=== PATIENT | female | born 1985 | race American Indian/Alaskan Native ===

== ENCOUNTER 2020-03-22 11:09 | Emergency (ER) | payer SELFPAY ==
[2020-03-22 11:16] VITALS: BP 140/93
[2020-03-22 12:43] LABS: HCG Qualitative,Urine Negative (Negative)
[2020-03-22 12:45] LABS: Bilirubin,Urine NEG (Negative); Blood,Urine SM (Negative); Color,Urine Yellow (Yellow); Mucus,Urine FEW /HPF; Protein,Urine <15 mg/dL mg/dL (Negative); Urobilinogen,Urine < 2.0 mg/dL (<2.0)
[2020-03-22] MEDS ORDERED: KETOROLAC 30 MG/1 ML INJ IM ONE (13:05)
--- NOTE | 2020-03-22 13:40 | XRay Report ---
ABDOMEN 2 VIEW(S) INDICATION / CLINICAL INFORMATION: abd pain. COMPARISON: None available. FINDINGS: TUBES / LINES: None. BOWEL GAS PATTERN: No significant abnormality. FREE AIR / EXTRALUMINAL GAS: None seen. ADDITIONAL FINDINGS: No significant additional findings. IMPRESSION: No significant abnormality. Signer Name: Albaro Gill Jr, MD Signed: 03/22/2020 1:36 PM Workstation Name: [id number]
--- NOTE | 2020-03-22 14:20 | XRay Report ---
RIGHT RIBS 4 VIEWS INDICATION / CLINICAL INFORMATION: right sided rib pain. COMPARISON: None available. FINDINGS: RIBS: No acute, displaced fracture or other acute abnormality. LUNGS: No acute findings. No pneumothorax. Signer Name: Ciro Jensen MD Signed: 03/22/2020 2:16 PM Workstation Name: [id number]
--- NOTE | 2020-03-22 14:21 | XRay Report ---
RIGHT HIP 2 VIEWS INDICATION / CLINICAL INFORMATION: right hip pain. COMPARISON: None available. FINDINGS: BONES/JOINT(S): No acute fracture or subluxation. No significant degenerative changes. SOFT TISSUES: No significant abnormality. ADDITIONAL FINDINGS: None. Signer Name: Ciro Jensen MD Signed: 03/22/2020 2:16 PM Workstation Name: [id number]
[2020-03-22 14:25] LABS: Basophils % (Auto) 0.5 % (0.0-1.8); Eosinophils # (Auto) 0.1 K/mm3 (0.0-0.4); Eosinophils % (Auto) 1.8 % (0.0-4.3); Hematocrit 36.2 % (30.3-42.9); Hemoglobin 11.9 gm/dl (10.1-14.3); Lymphocytes # (Auto) 1.7 K/mm3 (1.2-5.4); Lymphocytes % (Auto) 45.5 % (13.4-35.0); Mean Corpuscular HGB Conc 33 % (30-34); Mean Corpuscular Volume 90 fl (79-97); Monocytes # (Auto) 0.2 K/mm3 (0.0-0.8); Monocytes % (Auto) 6.2 % (0.0-7.3); Platelet Count 162 K/mm3 (140-440); Red Blood Count 4.04 M/mm3 (3.65-5.03); Red Cell Distribution Width 16.2 % (13.2-15.2)
[2020-03-22 14:56] LABS: Alanine Aminotransferase 16 units/L (7-56); Albumin 4.1 g/dL (3.9-5); Blood Urea Nitrogen 6 mg/dL (7-17); Calcium 8.9 mg/dL (8.4-10.2); Hemolysis Index 4
[2020-03-22 15:00] LABS: BUN/Creatinine Ratio 9
--- NOTE | 2020-03-22 15:06 | Emergency Department Report ---
HPI - General Chief Complaint: Abdominal Pain Time Seen by Provider: 03/22/20 12:38 - HPI HPI: This is a 34-year-old -German female presents to the emergency department with a complaint of some right-sided pain including the right hip, right flank and right side of the rib cage that is been going on for the past 2 weeks. The patient was previously seen for this [facility] and said that she had a CT scan and ended up being discharged home with a diagnosis of urinary tract infection. She took the antibiotics for 5 days, as was p rescribed, did not get any relief. She denies any nausea, vomiting, fever, chest pain, shortness of breath, constipation, diarrhea, vaginal bleeding or discharge, dysuria. The patient also says that she previously saw a chiropractor for the right hip pain. No recent travel or sick contacts at home. She has a past medical history of asthma. ED Past Medical Hx - Past Medical History Previous Medical History?: Yes Hx Asthma: Yes - Surgical History Past Surgical History?: No - Social History Smoking Status: Former Smoker - Medications Home Medications: Home Medications Medication Instructions Recorded Confirmed Last Taken Type Ibuprofen [Motrin 600 MG tab] 600 mg PO Q8H PRN #20 tablet 03/22/20 Unknown Rx ED Review of Systems ROS: Stated complaint: HIP AND RIB PAIN Other details as noted in HPI Comment: All other systems reviewed and negative Constitutional: denies: chills, fever Respiratory: denies: cough, shortness of breath Cardiovascular: denies: palpitations, edema Gastrointestinal: abdominal pain (right flank). denies: vomiting Musculoskeletal: arthralgia. denies: joint swelling Skin: denies: rash, lesions Neurological: denies: headache, weakness Physical Exam - Physical Exam Vital Signs: Vital Signs 03/22/20 11:14 Temperature 98.4 F Pulse Rate 80 Respiratory 18 Rate Blood Pressure 140/93 O2 Sat by Pulse 97 Oximetry Physical Exam: GENERAL: The patient is well-developed well-nourished. HENT: Normocephalic. Atraumatic. Patient has moist mucous membranes. EYES: Extraocular motions are intact. NECK: Supple. Trachea is midline. CHEST/LUNGS: Clear to auscultation. There is no respiratory distress noted. There is some right-sided rib pain to palpation. No crepitus or deformity. HEART/CARDIOVASCULAR: Regular. There is no tachycardia. ABDOMEN: Abdomen is soft, nontender. Patient has normal bowel sounds. There is no abdominal distention. SKIN: Skin is warm and dry. NEURO: The patient is awake, alert, and oriented. The patient is cooperative. The patient has no focal neurologic deficits. Normal speech. MUSCULOSKELETAL: There is some right-sided hip pain but no obvious deformity. There is no limitation range of motion. There is no evidence of acute injury. ED Course Vital Signs 03/22/20 11:14 Temperature 98.4 F Pulse Rate 80 Respiratory 18 Rate Blood Pressure 140/93 O2 Sat by Pulse 97 Oximetry ED Medical Decision Making - Lab Data Result diagrams: 03/22/20 13:37 03/22/20 13:37 - Radiology Data Radiology results: image reviewed interpreted by me: Chest x-ray does not show any acute process. There are no pleural effusions, obvious pneumonia and there is no pneumothorax. No significant cardiomegaly. No signs of any rib fractures or osseous abnormalities. X-ray of the abdomen shows nonspecific nonobstructive bowel gas. X-ray of the right hip does not show any fracture, dislocation, or any acute process. - Medical Decision Making This patient presents with a 2+ week history of some right-sided pains including right lateral lower ribs, right lower flank, and right hip. Patient has full range of motion and there are no signs of any obvious trauma or injury. X-rays were done of the chest with right-sided rib series, abdomen and right hip that did not show any acute processes. Patient's labs have been unremarkable including CBC, metabolic panel, urinalysis and the patient is not . Vital signs have been reassuring throughout her ED course including being afebrile. She will be discharged home to follow-up with an orthopedist regarding her hip pain, and a primary care physician for further evaluation of her other complaints. She has been instructed to return to the emergency department with any worsening of her symptoms or with any acute distress. Critical Care Time: No Critical care attestation.: If time is entered above; I have spent that time in minutes in the direct care of this critically ill patient, excluding procedure time. ED Disposition Clinical Impression: Rib pain on right side, Flank pain, Hip pain Disposition: TO HOME OR SELFCARE Is pt being admited?: No Condition: Stable Instructions: Flank Pain (ED), Arthralgia (ED) Additional Instructions: Please follow-up with a primary care physician in the next few days. I have given you a referral for to local orthopedic groups, Dr. Chavarria and [facility], to follow-up regarding your right hip pain. Return to the emergency department with any worsening of your symptoms or with any acute distress. Prescriptions: Ibuprofen [Motrin 600 MG tab] 600 mg PO Q8H PRN #20 tablet PRN Reason: Pain Referrals: PRIMARY CAREMD [Primary Care Provider] - 3-5 Days MARIO ALBERTO ISSA MD [Staff Physician] - 3-5 Days [facility] [Provider Group] - 3-5 Days JENN CHAVARRIA MD [Staff Physician] - 3-5 Days [facility] [Provider Group] - 3-5 Days Time of Disposition: 15:06
== END 2020-03-22 15:09 | disposition home or self-care (01) ==
LOC: ED 11:09
DX: M25.551 Pain in right hip (principal); R07.81 Pleurodynia; R10.9 Unspecified abdominal pain; J45.909 Unspecified asthma, uncomplicated; F17.200 Nicotine dependence, unspecified, uncomplicated; Z79.1 Long term (current) use of non-steroidal anti-inflammatories (NSAID)
CPT/HCPCS: 36415; 71101; 73502; 74019; 80053; 81001; 81025; 85025; 99283; J1885